=== PATIENT | female | born 1930 | race Caucasian/White ===

== ENCOUNTER 2019-07-07 16:06 | Inpatient (IN) | payer OTHER ==
[~2019-07-07] VITALS: Ht 152.4 cm; Wt 49.1 kg
[2019-07-07 16:08] VITALS: BP 150/82
[2019-07-07 16:51] LABS: EOSINOPHILS 6.8 % (0.0-3.0); HEMATOCRIT 37.4 % (37.0-47.0); HEMOGLOBIN 12.3 gm/dL (12.0-15.0); LYMPHOCYTES 18.4 % (24.0-44.0); MCH 31.8 pg (26.0-34.0); MCHC 32.9 g/dL (28.0-37.0); MCV 96.5 fL (80.0-100.0); MONOCYTES 8.5 % (1.0-8.0); PLATELET COUNT 203 thou/uL (150-400); POLYS 65.3 % (36.0-66.0); RBC 3.88 mil/uL (4.20-5.00); RDW 16.4 % (10.5-14.5); URINE BILIRUBIN NEGATIVE (Negative); URINE BLOOD NEGATIVE (Negative); URINE CLARITY CLEAR; URINE COLOR YELLOW; URINE GLUCOSE-RANDOM* NEGATIVE (Negative); URINE KETONES NEGATIVE (Negative); URINE LEUKOCYTES-REFLEX NEGATIVE (Negative); URINE NITRITE-REFLEX NEGATIVE (Negative); URINE PROTEIN (DIPSTICK) NEGATIVE (Negative); URINE UROBILINOGEN 0.2 E.U./dl (0.2-1.0); WBC 7.7 thou/uL (4.0-11.0)
[2019-07-07 17:04] LABS: CALCIUM 8.6 mg/dL (8.5-10.1); CREATININE 1.3 mg/dL (0.6-1.0); POTASSIUM 4.1 mmol/L (3.5-5.1)
[2019-07-07 17:10] LABS: ALBUMIN 3.2 g/dL (3.4-5.0); TOTAL BILIRUBIN 0.3 mg/dL (<0.1-1.0); TOTAL PROTEIN 6.3 g/dL (6.4-8.2)
[2019-07-07] MEDS ORDERED: CLONAZEPAM 0.50.5 M1 PO (17:18)
[2019-07-07] MEDS ORDERED: SEROQUEL 25 MG25 M1 PO (17:19)
[2019-07-07] MEDS ORDERED: SERTRALINE HCL50 MG PO (17:21)
[2019-07-07] MEDS ORDERED: SEROQUEL XR1 EACH PO (17:21)
[2019-07-07] MEDS ORDERED: CALCIUM CARBON500 MG PO (17:22)
[2019-07-07] MEDS ORDERED: MAGNESIUM-VIT1 EAC1 PO (17:22)
[2019-07-07] MEDS ORDERED: SYNTHROID88 MC1 PO (17:23)
[2019-07-07] MEDS ORDERED: MYSOLINE50 MG PO (17:23)
[2019-07-07] MEDS ORDERED: COLACE100 MG PO (17:23)
[2019-07-07] MEDS ORDERED: VITAMIN B-1250 MC2 PO (17:25)
[2019-07-07] MEDS ORDERED: MAPAP325 MG PO (17:26)
[2019-07-07 18:10] VITALS: BP 165/93
[2019-07-07] MEDS ORDERED: ATIVAN1 M1 PO ×2 (18:28→18:29)
--- NOTE | 2019-07-07 20:49 | NUR ---
183 88 yo female admitted per ER via half-way [facility] for dementia, insomnia, being increasingly "mean" to staff with decreased intake over past week. Spoke with son Godwin Scanlon (DPOA) via phone and he reports that she has been at [facility] for approximately 1 year and she has never liked being there to the point of her having to wear an ankle bracelet. He reports increased behaviors with staff over past few week. Awake and alert, anxious. States she does not want to be here and that she was told she was only here for a checkup. States she wants to go home. Breath sounds clear t/o, bilaterally equal. Color pink with brisk capillary refill and palpable peripheral pulses. Hypertensive. Regular HR auscultated. Active bowel sounds over soft, flat abdomen. Lg BM in ER per report. Straight cath also done in ER with pending cx. Gait very unsteady, wants to ambulate independently. Tremors present. Placed in wheelchair with lap randy. Large bruise over dorsal aspect of L foot with multiple bruises over arms. Mastectomy scar over L breast, limb alert bracelet in place.
--- NOTE | 2019-07-07 21:20 | NUR ---
Patient irritable, yelling, refusing HS medication. MD notified of behaviors and refusal. Order obtained for Geodon 15mg IM 1x now for severe agitation.
--- NOTE | 2019-07-08 00:18 | NUR ---
Patient approached while sitting in dayroom at which time she requested for a drink of water and to lay down. Patient given a drink of water and assisted to the bathroom. Patient continent of bladder in the bathroom. Patient then assisted to her bed. Patient states that is not her bed and she will not lay down. Nurses tried x10 minutes with no success. This occured at approximately 2300. Patient remains awake, sitting in w/c in the dayroom. MD aware. Order obtained for Ativan IM. Medication administered to right buttock with nurse x2 and security x2. Patient yelling, attempting to hit and kick. Continues to sit in w/c in dayroom at this time.
--- NOTE | 2019-07-08 01:17 | NUR ---
This nurse approached patient at 0100. Patient asked if she would like to lay down. Patient stated "yes, I'm tired, lets go". Nurse assisted patient to her room. Patient originally grabbed the door frame on the way into her room saying "this is not my apartment". Patient did allow for nurse to take her in to look around. Patient stood and walked with nurse to her bed with min assist. Patient layed down in bed for a minute but then started to get up again. Nurse sat with patient to hold her hand and talk to her. Patient repeatedly stating "you are going to kill me, aren't you". Nurse consoled patient and attempted to re-orientate her with no success. Patient layed in bed for approximately 10 minutes with nurse then stated "I'm going home now" and attempted to get out of bed independently. Nurse walked with patient to the hallway where she was assisted into a w/c. Patient paranoid and confused. However, no physical aggression shown at this time which is progress. Patient offered snacks and fluids and is sitting with staff supervision in dayroom.
--- NOTE | 2019-07-08 01:39 | NUR ---
The pt. asked if I could take her home, to [facility]. She was explained where she was and she said "I don't need to see the Dr." and "anybody can get one of those (badges)".
--- NOTE | 2019-07-08 03:23 | NUR ---
The pt. continued being suspicious of staff trying to help her saying "you're going to kill me", she drank water provided to her however. She sat in the day room and repeated "help me" and also "you're trying to kill me", noted tense and very confused. called at 0315 and order given for Olanzapine 10 mg. IM x 1 now which was given to her.
--- NOTE | 2019-07-08 04:53 | NUR ---
PATIENT HAS BEEN UP ALL NIGHT AND IS DELUSIONAL AND SCARED THAT PEOPLE ARE OUT TO KILL HER. SEVERAL ATTEMPTS HAVE BEEN MADE TO ASSIST PATIENT TO BED AND SHE HAS SCREAMED AND BEEN SCARED. I ASKED HER NURSE, SHAUN IF SHE WOULD MIND IF I SAT WITH PATIENT IN THE ROOM UNTIL SHE FELL ASLEEP BECAUSE PT STATED TO ME "i AM SO SLEEPY, BUT THEY WILL KILL ME IF i GO TO SLEEP." I TRIED TO EXPLAIN SHE IS SAFE AND WE ARE ALL HERE TO HELP HER. PATIENT AGREED THAT IF I STAYED WITH HER WHILE SHE WAS IN HER BED THAT SHE WOULD LAY DOWN AND TRY TO SLEEP. ONCE IN BED, PATIENT'S LEGS BEGAN HAVING SPASMS AND JUMPING SHE WAS SO TENSE AND TRYING TO RELAX. I TRIED WARMING AND RELAXING HER LEGS. SHE SAID THEY WERE HURTING WHEN THEY CRAMPED AND SHE WANTED SOMETHING TO HELP HER. PATIENT HAS BEEN REFUSING HER PO MEDS SINCE SHE'S BEEN HERE. I TOLD HER I COULD GET HER A PILL TO HELP WITH THE DISCOMFORT BUT SHE HAD TO AGREE TO TAKE IT. SHE DID TAKE THE TYLENOL 650MG WITH WATER. I ALSO RUBBED HER LEGS DOWN WITH ADONAY HOPE. SAT WITH PATIENT A LITTLE LONGER AND SHE SAID HER LEGS KEPT JUMPING AND HURTING. HER NURSE WAS AT LUNCH SO I OFFERED TO CALL THE DOCTOR FOR SOMETHING FOR HER RESTLESS LEGS/CRAMPING. DR BONILLA ORDERED ROPRINOLE .5MG PO AND DIAZEPAM 5MG PO. AWAITING MEDS AND LET ISAI Mata RN KNOW IT WAS ON IT'S WAY SHE CAME BACK FROM LUNCH.
[2019-07-08 07:35] VITALS: BP 97/55
[2019-07-08 09:45] VITALS: BP 97/55
--- NOTE | 2019-07-08 09:54 | NUR ---
0617 Report received from overnight shift, patient up in day room, ate breakfast. Took medication without incidence, patient did not partcipate in groups. She wanted to go back room to rest, patient calm cooperative and is impulsive at time. Patient keep tryimg to get out of wheelchair to walk on own. She does need assitance with walking.
[2019-07-08 10:06] LABS: FOLIC ACID 15.3 ng/mL (8.6-58.9); TSH 23.262 uIU/mL (0.358-3.740)
--- NOTE | 2019-07-08 13:07 | NUR ---
Nutrition: Admit: increase in aggressive behavior, agitation. From NH. Assess due to high risk per reported 2-13# of wt loss and decreased appetite. Visited after lunch. Pt was already back in bed, sound asleep. Spoke w/ pt's nurse. RN states pt ate well today, was up for both meals, no eating concerns. Pt has taken naps after both meals. RN attempted to wake pt up for RD interview, but pt was sound asleep. Given adequate po intake on unit thus far, lack of any weight hx in EMR, and healthy weight and BMI at 22.2 kg/m2, will keep as low nutrition risk for now. Will follow up again next week once more data and meal intakes become available for trends. Note pt on cholecalciferol for hx vitamin D deficiency, magnesium, and remeron which could help appetite also.
[2019-07-08 19:55] VITALS: BP 136/54
--- NOTE | 2019-07-09 02:16 | NUR ---
1909-Report received from day shift nurse and care assumed. Xin was in her bed resting and awake at shift start and talkative and cooperative with assessment. She said "I just want to rest, I'm tired". She was continent of urine and was stand by assist with walker, she tilted to the side high fall risk. She was compliant with HS meds. whole with water asking what they were for and indication. She later was awake and began getting restless so went to the day room in wheelchair. She said "what is wrong with her" towards a loud peer, talked with staff, said she wanted to go back to bed to sleep and was polite saying thank you and bright affect as she was not sleepy until later when she did go to bed and slept well remainder of the night. Rash on upper and lower back raised, itchy noted and Nurse Practioner called for orders.
[2019-07-09 10:13] VITALS: BP 117/63
--- NOTE | 2019-07-09 14:11 | NUR ---
Up to wheelchair. Wants to ambulate but gait very unsteady with tremor. Lap randy in place. Repeats speech of peers. Orientated to person and knows she is in hospital. Appropriate requests. At times confused speech. Denies SI/HI, pain. Breath sounds clear t/o, bilaterally equal. Regular HR auscultated. Color pink with brisk capillary refill and palpable peripheral pulses. Active bowel sounds over soft, flat abdomen. Multiple bruises on arms and L foot. L masectomy scar. Callous on R foot. 1400 Sleeping in recliner without s/o distress. Drank several ounces of water.
[2019-07-09 19:35] VITALS: BP 110/60
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
[2019-07-10 04:53] LABS: HEMATOCRIT 39.6 % (37.0-47.0); HEMOGLOBIN 12.7 gm/dL (12.0-15.0); MCH 31.8 pg (26.0-34.0); MCHC 32.2 g/dL (28.0-37.0); MCV 98.8 fL (80.0-100.0); RBC 4.01 mil/uL (4.20-5.00); RDW 16.7 % (10.5-14.5); WBC 5.7 thou/uL (4.0-11.0)
[2019-07-10 05:04] LABS: CALCIUM 9.6 mg/dL (8.5-10.1); CREATININE 1.2 mg/dL (0.6-1.0)
[2019-07-10 08:07] VITALS: BP 136/73
[2019-07-10 13:50] VITALS: BP 150/82
--- NOTE | 2019-07-10 14:35 | NUR ---
REFUSED AM MEDICATIONS STATING "THE OMLY MEDICINE I NEED IS MY SHAKING MEDICINE I HAD THAT" YELLING OUT AND REPEATING PHRASE "HELP ME HELP ME" WHEN APPROACHED STATES SHE NEEDS TO "GET OUT OF HERE" BUT DOES NOT KNOW WHERE HERE IS STATING SHE IS IN "BIG HOUSE SOMEWHERE MARCO CLEARY" DENIES C/O PAIN AND NO TREMOR NOTED DURING AM ASSESSMENT-DID EAT APPROX 30 PERCENT OF BREAKFAST WITH FEEDING BUT WILL NOT INITATE FEEDING SELF-TOOK BITES OF LUNCH ONLY BEFORE CLOSING MOUTH TIGHTLY AND REFUSING. GAIT BRANDIE UNSTEADY AND IS IMPULSIVE ON SEVERAL OCCASSIONS GETTING UP AND WALKING ON OWN-LAP BELT APPLIED BUT REMOVES IT WITHING 1-2 MINUTES OR SLIDES UNDERNEATH-CHAIR ALARM INITATED AND HAS BEEN GOING OFF FREQUENTLY THIS PM.
[2019-07-10 20:02] VITALS: BP 124/63
--- NOTE | 2019-07-11 01:26 | NUR ---
Care assumed of patient at 1915: Patient resting in bed at start of shift. Patient easily aroused. Patient compliant with nursing assessment. Denies pain or discomfort. Denies SI/HI/AH/VH. No s/s of delusional or paranoia behaviors. Alert and oriented to person only. Confused and forgetful. Patient has been calm, pleasant and cooperative. Patient will wake up approximately every hour and calls out for help. Patient re-oriented to current time and place then she falls back to sleep without difficulty. Patient took HS medication crushed with yogurt. Patient ate a couple bites of yogurt but declined any more than that. Patient assisted to the bathroom x1. Continent of bladder. Required mod assist x1 for ambulation, transfers and toileting. Patients involuntary tremors appear to be lessened this shift. No aggression or agitation observed. Patient respectful, smiling and holding nurses hand when talking.
[2019-07-11 08:53] VITALS: BP 128/76
--- NOTE | 2019-07-11 17:46 | NUR ---
Alert, sitting in recliner without s/o distress. Orientated to person and place. Denies SI/HI. Repeatedly c/o "shakyness" in late afternoon. Ativan given per scheduled order. Breath sounds clear t/o, bilaterally equal. Color pink with brisk capillary refill and palpable peripheral pulses. Regular HR auscultated. Incontinent per brief. Active bowel sounds over soft, flat abdomen. No issues today.
[2019-07-11 20:02] VITALS: BP 139/77
--- NOTE | 2019-07-12 02:05 | NUR ---
ASSUMED CARE AT APROXIMATELY 19:15 ON 07/11/19, SITTING IN W/C WITH LAP TARSHA IN PLACE. A&O X 1 TO PERSON ONLY. NOT ABLE TO DESCRIBE PLACE [facility], OR EVEN JUST A HOSPITAL. DENIES SI AND HI, NO APPARENT AH, OR VH. TOOK MEDS CRUSHED IN PUDDING, ASKING IF HER MEDICATION TO HELP STOP SHAKING WAS IN THERE. GIVEN PRN TYLENOL 650 FOR 5/10 BACK PAIN. CONTINENT OF URINE, AMBULATING TO THE BATHROOM ON AN UNSTEADY GAIT, X 1 ASSIST. IN BED AT THIS WRITING, EYES CLOSED, RESPIRATIONS EVEN AND UNLABORED. BED IN LOW POSITION, BED ALARM SET. HAS WOKEN UP X 2 IN THE NIGHT TO TOILET. WILL CONTINUE TO MONITOR Q 12 MINUTES FOR PATIEN SAFETY.
--- NOTE | 2019-07-12 06:00 | NUR ---
SLEPT 5.8 HOURS OVERNIGHT
[2019-07-12 09:16] VITALS: BP 140/72
[2019-07-12 13:18] LABS: HEMATOCRIT 40.4 % (37.0-47.0); HEMOGLOBIN 13.2 gm/dL (12.0-15.0); MCHC 32.8 g/dL (28.0-37.0); MCV 97.5 fL (80.0-100.0); RBC 4.14 mil/uL (4.20-5.00); RDW 16.1 % (10.5-14.5)
[2019-07-12 13:35] LABS: ALBUMIN 3.3 g/dL (3.4-5.0); CALCIUM 8.9 mg/dL (8.5-10.1); CREATININE 1.4 mg/dL (0.6-1.0); MAGNESIUM 2.1 mg/dL (1.8-2.4); POTASSIUM 4.2 mmol/L (3.5-5.1); TOTAL BILIRUBIN 0.7 mg/dL (<0.1-1.0); TOTAL PROTEIN 7.1 g/dL (6.4-8.2)
[2019-07-12 16:07] LABS: URINE BILIRUBIN NEGATIVE (Negative); URINE BLOOD NEGATIVE (Negative); URINE CLARITY CLEAR; URINE COLOR YELLOW; URINE GLUCOSE-RANDOM* NEGATIVE (Negative); URINE KETONES NEGATIVE (Negative); URINE NITRITE-REFLEX NEGATIVE (Negative); URINE PROTEIN (DIPSTICK) NEGATIVE (Negative); URINE SPECIFIC GRAVITY >= 1.030 (1.005-1.035); URINE UROBILINOGEN 0.2 E.U./dl (0.2-1.0)
[2019-07-12 16:09] LABS: URINE LEUKOCYTES-REFLEX 1+ (Negative)
[2019-07-12 16:18] LABS: SQUAMOUS 0-3 Few /LPF (0-3)
[2019-07-12 16:19] LABS: CASTS None Seen /LPF (None Seen); CRYSTALS None Seen /LPF (None Seen); URINE RBC None Seen /HPF (0-2)
--- NOTE | 2019-07-12 16:36 | NUR ---
Remained in dayroom today, she had fever this a.m. and reported to PUBLIC WORKS LABORER as well as Dr. Michel, orders for labs and UA done, she is alert and confused, she does have anxiety about her meds and "where she needs to go", reassured she is safe and meds are for her thoughts and "shaking", she was seen having a conversation with another peer, she is asisted in eating, much encouragement needed for her to eat and drink, no agitation or aggression noted today. Continue to monitor for behaviors and safety.
[2019-07-12 20:19] VITALS: BP 141/85
[2019-07-12 22:38] VITALS: BP 141/85
--- NOTE | 2019-07-13 03:40 | NUR ---
PT UP IN DAY AREA AT BEGINNING OF EVENING. VERBALIZING THAT SHE WANTS HER MEDS AND TO GO TO BED. SHORT TERM MEMORY IMPAIRED. AFTER SNACK, PT TOOK HS MEDS CRUSHED WITH APPLESAUCE. HAS SLEPT INTERMITTANTLY THROUGH THE NIGHT. RESTLESS BUT REDIRECTABLE.
[2019-07-13 12:20] VITALS: BP 146/80
--- NOTE | 2019-07-13 12:32 | NUR ---
ASSDUMED CARE AT 0700 THIS MORNING. PT. UP, DRESSED AND ON THE UNIT IN A W/C. SHE STATES SHE NEEDS HELP AND THEN FORGETS WHAT SHE NEEDS. SHE IS PLEASANT AND COOPERATIVE WITH STAFF. DR. GILLILAND WROTE ORDER TO GIVE 500 ML. NORMAL SALINE IV. IV TEAM NOTIFIED AND STARTED IV. NORMAL SALINE STARTED AND WAS INSTILLED IN PT. SHE COULD NOT SWALLOW HER MEDICATIONS WHOLE. THEY WERE CRUSHED AND PT. IN APPLESAUCE. SHE MUMBLES A LOT WHEN SHE TALKS, BUT DOES NOT SEEM TO ANSWER QUESTIONS. FED SELF SLOWLY. NOT NOTICE OF SI/HI OR AVH TODAY.
[2019-07-13 20:09] VITALS: BP 142/70
--- NOTE | 2019-07-14 05:10 | NUR ---
ASSUMED CARE OF PATIENT AT 1915. SHE WAS IN BED AT THAT TIME AND REMAINS IN BED NOW. TOOK PO MEDS CRUSHED IN APPLESAUCE. WILL SWALLOW SMALL PILLS WHOLE. PLEASANT AND COOPERATIVE WITH ASSESSMENT PROCESS. DID HAVE A RESTLESS PERIOD DURING THE NIGHT, ATTEMPTING TO GET OUT OF BED REPEATEDLY, UNABLE TO LIE STILL. MEMORY VERY POOR. ASKED FOR EVENING MEDS AT LEAST TWICE AFTER SHE HAD ALREADY GOTTEN THEM. DID C/O LEG PAIN AND REC'D TYLENOL PER ORDERS WITH SOME RELIEF.
[2019-07-14 06:55] LABS: CALCIUM 8.6 mg/dL (8.5-10.1); CREATININE 1.2 mg/dL (0.6-1.0); POTASSIUM 4.1 mmol/L (3.5-5.1)
[2019-07-14 06:58] LABS: HEMATOCRIT 33.4 % (37.0-47.0); MCH 31.9 pg (26.0-34.0); MCHC 32.8 g/dL (28.0-37.0); MCV 97.2 fL (80.0-100.0); RBC 3.44 mil/uL (4.20-5.00); RDW 16.2 % (10.5-14.5); WBC 3.7 thou/uL (4.0-11.0)
[2019-07-14 07:53] VITALS: BP 145/66
--- NOTE | 2019-07-14 17:35 | NUR ---
Sitting in wc with lap randy in place. No s/o distress. Orientated to person only. Denies SI/HI. Repeatedly asking for "shaky" medicine and then forgetting that she had it at 0900. Discussed with Dr. Starkey, ordered tid. Very forgetful. Breath sounds clear t/o, bilaterally equal. Reg HR auscultated. Color pink with brisk capillary and palpable peripheral pulses. Active bowel sounds over soft, rounded abdomen. Voiding per toilet. Ambulated with walker twice around unit with assistance. Gait moderately steady. Dr. Starkey aware of no BM since 07/09. PRN meds ordered. Eating fair today. Many questions r/t food/drink. Eating ensure pudding at present. Watching TV, no s/o distress.
[2019-07-14 19:48] VITALS: BP 150/81
[2019-07-14 21:45] VITALS: BP 150/81
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
--- NOTE | 2019-07-15 02:08 | NUR ---
PATIENT UP IN DINING ROOM IN RECLINER CHAIR. PATIENT IS STILL AWAKE AND NOT WANTING TO GO TO SLEEP. HALDOL 2.5MG PO AND TYLENOL 650MG PO GIVEN AT 0200 CRUSHED IN ICECREAM. PATIENT ENJOYED HER SNACK AND HAS BEEN DRINKING WATER. PATIENT LAYING QUIETLY NOW IN RECLINER. WILL CONTINUE TO MONITOR.
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
--- NOTE | 2019-07-15 06:31 | NUR ---
ASSISTED PATIENT BY WC TO HER ROOM TO USE TOILET. SHE VOIDED SMALL AMOUNT. DRY CLEAN BRIEF PUT ON. PLACED PATIENT IN CLEAN CLOTHES WITH YELLOW SHIRT. PT WANTED TO LAY DOWN. PATIENT IN BED RESTING TILL BREAKFAST. BED IN LOW POSITION AND BED ALARM ON.
[2019-07-15 09:06] VITALS: BP 122/71
[2019-07-15 10:58] VITALS: BP 122/71
--- NOTE | 2019-07-15 11:15 | NUR ---
Pt is sleeping during the day less. Disoriented to place/time/date. Participating minimally with exercises or group sharing when not focused on getting up or needing help. No agressive behaviors.
--- NOTE | 2019-07-15 17:41 | NUR ---
ASSUMED CARE AT 0700 THIS MORNING. PT. IN BED RESTING. NOC SHIFT REPORTED THAT THE PT. DID NOT SLEEP AT ALL LAST NIGHT. SHE WAS ALLOWED TO REST UNTIL 0900 THIS MORNING. SHE WAS THEN AWAKENED AND GIVEN HER MORNING MEDICATION. HER MORNING MEDICATIONS WERE CRUSHED AND PUT IN APPLESAUCE. SHE TOOK THESE WITHOUT DIFFICULTY. ABOUT 1300 SHE WENT TO LAY DOWN. SHE GOT UP ABOUT 30 MIN LATER. SHE GOT IN HER W/C AND INTO THE TRIPP. SHE STARTED TALKING ABOUT SEEING ANTS. SHE WOULD NOT ALLOW STAFF TO TAKE HER TO THE DINING ROOM. SHE ATTEMPTED TO GET OUT OF HER CHAIR, BECOMING VERY UPSET. WHEN STAFF ATTEMPTED TO TALK TO HER, SHE STARTED SWINGING AT THEM. STAFF ATTEMPTED TO GIVE HER HALDOL, BUT SHE REFUSED. DR. BONILLA WAS ON THE UNIT AND STATED HE WAS CHANGING HER PRN IM. PT. WAS THEN GIVEN A PRN IM. SHE CONTINUED TO BE OBSTINANT. SHE REFUSED SUPPER, BUT WAS GIVEN APPLE JUICE. SHE SAT ON THE UNIT UNTIL STAFF CAN TAKE HER TO BED.
[2019-07-15 19:55] VITALS: BP 152/86
[2019-07-15 22:00] VITALS: BP 152/86
--- NOTE | 2019-07-16 04:37 | NUR ---
PATIENT STARTED COGENTIN TONIGHT. PATIENT WAS UP IN DINING ROOM IN W/C THIS EVENING. SHE WAS VERY SLEEPY AND RESTLESS. SHE DID EAT ICECREAM A SNACK. PATIENT WAS CALM. PATIENT WAS ASSISTED TO BED AT 2300. SHE HAS LAID QUIETLY IN THERE AND FINALLY FALLING ASLEEP FOR SUSTAINED PERIOD AT 0300. PATIENT HAS BEEN ALOT LESS ANXIOUS TONIGHT AND MORE COOPERATIVE WITH CARES. BED IN LOW POSITION AND BED ALARM ON. WILL CONTINUE TO MONITOR.
[2019-07-16 08:18] VITALS: BP 114/59
[2019-07-16 12:08] VITALS: BP 114/59
--- NOTE | 2019-07-16 12:18 | NUR ---
ASSUMED CARE AT 0700 TODAY. PT. WAS IN BED, GOTTEN UP FOR BREAKFAST BY THIS RN AND A PCT. PT. WAS COOPERATIVE WITH THIS. SHE DID STATES SHE WOULD LIKE TO REMAIN IN BED, BUT DID GET UP WHEN STAFF TOLD HER IT IS BREAKFAST TIME. SHE CONTINUES TO HAVE MUCH CONFUSION. HER MEDICATIONS ARE CRUSHED AND PUT IN PUDDING. SHE NEEDED SOME ENCOURAGEMENT TO TAKE THE MEDICATIONS, BUT DID. DOES NOT EAT WELL OFTEN ONLY 10-20% OF THE MEAL AT EACH MEAL. UNABLE TO PARTICIPATE MUCH IN GROUPS DUE TO HER CONFUSION. NO S/S SI/HI NOTED. AT THIS WRITING TODAY SHE HAS NOT MENTIONED THE ANTS. WILL CONTINUE TO MONITOR.
--- NOTE | 2019-07-16 15:45 | NUR ---
Pt's son Godwin Scanlon contacted TIMOTHY to get an update; TIMOTHY provided the update including that on Saturday she had a rough evening, and as a result the psych doctor pushed back the conversation of discharge to Saturday. TIMOTHY also provided education to Godwin on the discharge process. Godwin is afraid that pt's behavior will cause [facility] to not want her to return. TIMOTHY explained that while pt did have some behaviors, none were aggressive or violent and she has not heard from [facility] that pt cannot come back. SW team will continue to follow pt during her stay.
[2019-07-16 20:00] VITALS: BP 111/82
--- NOTE | 2019-07-17 01:43 | NUR ---
Care assumed of patient at 1915: Patient seated in w/c in dayroom at start of shift. Patient alert and oriented to person. Confused and forgetful. Patient agitated, irritable and restless this shift. Patient sarcastic and frustrated with staff. Patient provided a cup of ice water. Patient then provided medication crushed. Patient became confused and agitated because she forgot which cup was her water even though she was holding it in her hand. Patient then stated that she was concerned about "overdose". Patient then stated "are you trying to poison me?". Patient required several re-directions and perserverance for her to take her HS medications. After several minutes, patient took all HS medication. Patient ate 25% yogurt cup. Staff asked patient if she was ready to go to bed, patient yelled at staff "I am not a baby, I will put myself to bed when I am damned ready". Another staff approached her several minutes later and asked if she needed to use the bathroom. Patient stated in a sarcastic manner, "No mommy, I can go to the potty by myself". Patient restless, propelling w/c about the unit. Appears that patient has not slept well over the last several nights. Agitation continued to increase, attempting to hit staff and yelling. LEVI Plunkett notified of behaviors. LEAD WEB DEVELOPER notified that patient took Olanzapine 12.5mg PO at HS and has Olanzapine 10mg IM PRN available. Due to administration being approximately 3 hours apart, it was OK to give PRN Olanzapine. Patient assisted to bed with staff x3 to administer injection. Patient grabbing and pinching staff, resisting care, yelling. Patient settled in bed with bed alarm activated. Patient has remained in bed resting quietly since.
[2019-07-17 08:49] VITALS: BP 109/62; BP 133/68
[2019-07-17 09:30] VITALS: BP 109/62
--- NOTE | 2019-07-17 09:41 | NUR ---
0645 Report received from overnight shift, patient did not eat breakfast, took some applesauce with medication. Patient is slouched in w/c, calm, confused. Not participating in any groups, Dr. Starkey ordered labs to see if patient's labs are therapuetic. Patient is not eating much or drinking much.
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
[2019-07-17 11:17] LABS: ABSOLUTE NEUTROPHILS 4.3 thou/uL (1.4-8.2); BASOPHILS 0.7 % (0.0-2.0); HEMATOCRIT 38.5 % (37.0-47.0); HEMOGLOBIN 12.6 gm/dL (12.0-15.0); LYMPHOCYTES 22.2 % (24.0-44.0); MCH 31.9 pg (26.0-34.0); MCHC 32.8 g/dL (28.0-37.0); MCV 97.2 fL (80.0-100.0); MONOCYTES 8.8 % (1.0-8.0); PLATELET COUNT 204 thou/uL (150-400); POLYS 67.3 % (36.0-66.0); RBC 3.96 mil/uL (4.20-5.00); RDW 15.7 % (10.5-14.5); WBC 6.4 thou/uL (4.0-11.0)
[2019-07-17 11:23] LABS: CALCIUM 9.2 mg/dL (8.5-10.1); CREATININE 1.3 mg/dL (0.6-1.0); POTASSIUM 4.5 mmol/L (3.5-5.1)
--- NOTE | 2019-07-17 16:19 | NUR ---
SW received a call from pt's daughter Lauryn asking for an update. SW read for her a couple recent notes. She said her brother Godwin told her that her mom's health was declining. SW explained that the doctor thinks she may qualify soon for hospice as her eating has greatly reduced. SW team will continue to follow pt during her stay.
--- NOTE | 2019-07-17 16:21 | NUR ---
0647 Report received from overnight shift, patient in day room this morning slumped in chair, head down. Patient did not eat breakfast, just drank a few sips of insure, and some sips of water. Dr mullins ordered CBC and BMP to check labs. Patient is declining from 5 days ago, patient is refusing to eat and only takes sips of water. Dr mullins notified son of patient's condition, they talked about next level of care for patient. We laid patient down due to slouching in wheel chair and holding head down for comfort. We are to encourage fluids and her Olanzipine discontinued.
[2019-07-17 20:18] VITALS: BP 146/80
--- NOTE | 2019-07-17 23:10 | NUR ---
Care assumed of patient at 1915: Patient resting in bed at start of shift. Patient woke up for nursing assessment. Calm, pleasant and cooperative. Alert and oriented to person only. Confused and forgetful. Patient appears drowsy but was compliant with assessment. Denies pain or discomfort. Took HS medication crushed without difficulty. Declined HS snack. Patient having poor eye contact, presents with flat affect. Reported she was tired and would like to back to sleep. No aggression, agitation or irritability observed. Patient resting quietly in bed at this time.
[2019-07-18 06:00] LABS: HEMATOCRIT 36.6 % (37.0-47.0); HEMOGLOBIN 12.1 gm/dL (12.0-15.0); MCH 32.1 pg (26.0-34.0); MCHC 33.1 g/dL (28.0-37.0); MCV 97.2 fL (80.0-100.0); RBC 3.77 mil/uL (4.20-5.00); RDW 15.7 % (10.5-14.5); WBC 6.6 thou/uL (4.0-11.0)
[2019-07-18 06:21] LABS: CALCIUM 9.1 mg/dL (8.5-10.1); CREATININE 1.2 mg/dL (0.6-1.0); POTASSIUM 3.9 mmol/L (3.5-5.1)
[2019-07-18 06:30] LABS: URINE BILIRUBIN NEGATIVE (Negative); URINE BLOOD TRACE (Negative); URINE CLARITY CLEAR; URINE COLOR YELLOW; URINE GLUCOSE-RANDOM* NEGATIVE (Negative); URINE KETONES NEGATIVE (Negative); URINE LEUKOCYTES-REFLEX 1+ (Negative); URINE NITRITE-REFLEX NEGATIVE (Negative); URINE PROTEIN (DIPSTICK) NEGATIVE (Negative); URINE SPECIFIC GRAVITY >= 1.030 (1.005-1.035); URINE UROBILINOGEN 0.2 E.U./dl (0.2-1.0)
[2019-07-18 06:43] LABS: SQUAMOUS 0-3 Few /LPF (0-3); URINE WBC-REFLEX >25 Many /HPF (0-5)
[2019-07-18 06:44] LABS: BACTERIA-REFLEX 1-9 Few /HPF (None Seen); CASTS None Seen /LPF (None Seen); CRYSTALS None Seen /LPF (None Seen); URINE RBC 0-2 Rare /HPF (0-2)
[2019-07-18 07:55] VITALS: BP 115/74
--- NOTE | 2019-07-18 15:48 | NUR ---
BRIEF EPISODE OF MILD AGITATION IN FORM OF YELLING OUT REPEATDLY FOR HELP-ASKING PEERS TO HELP HER AND ATTEMPTING TO STAND UP UNASSISTED AT APPROX 0730 THIS AM-ASSISTED TO TOILET AND DID HAVE BM-RETURNED TO BREAKFAST ROOM AND WAS ABLE TO EAT BREAKFAST AND REMAIN IN DAYROOM AND IN GROUP WITHOUT SIGNIFICANT RESTLESSNESS/AGITATION-UNTIL APPROX 1500 WHEN BEGAN YELLING LOUDLY FOR HELP ASKING EVERY 1-2 MINUTES FOR "SHAKING PILL" NO VISIBLE TREMOR BUT STATES FEELS "SHAKY ON THE INSIDE"AMBULATED IN HALLWAY WITH GAIT BELT,ROLLER WALKER AND SBA X1 APPROX 100FT AND TOLERATED WELL-NOTED TO HAVE CHIN TO CHEST HEAD POSITION AND DOES REPORT STIFFNESS AND PAIN IN NECK AREA-NO COGWHEEL RIGIDITY NOTED WHEN TESTED-NO DROOLING OR SWALLOWING PROBLEMS NOTED OR REPORTED-TOPICAL ANALGESIC OINTMENT APPLIED PRN AT APPROX 1600 ALONG WITH TYLENOL 650MGPO PRN FOR NECK STIFFNESS-PT UNABLE TO RATE ON 1-10 SCALE BUT IS NOTED TO GRIMACE WITH MOVEMENT OF NECK.SHOULDER AREA-ASSISTED TO TOILET Q 2-3 HOURS AND HAS REMAINED CONTINENT SO FAR THIS SHIFT
[2019-07-18 21:16] VITALS: BP 112/50; BP 148/83
--- NOTE | 2019-07-19 03:19 | NUR ---
ASSUMED CARE FROM DAY SHIFT PT SITTING IN RECLINER IN DAY ROOM, HAVE NO CONCERNS OR COMPLAINTS AT TIME OF ASSESSMENT. PO MEDICATON TAKEN AND PT ASSISTED TO BED. GAIT UNSTEADY WHEN UP FROM WHEELCHAIR TO BED. PT RESTED WELL THROUGHOUT FREQ CHECKS, WILL CONITNUE WITH CURRENT PLAN OF CARE AND WILL REPORT CHANGES OR ABNORMAL FINDINGS.
[2019-07-19 09:35] VITALS: BP 124/71
[2019-07-19 10:40] VITALS: BP 124/71
--- NOTE | 2019-07-19 15:27 | NUR ---
Assumed care this morning 0700. Patient calm and at the activity room. Helped with breakfast setup. Complained of backache, tylenol administered. feeling well this afternoon Going around the unit on her w/c. Nurse has to encourage her to take medications. Crushed into apple sauce. poor appetite. encourage to feed especially ensure enlive drink. Pt had resting tremor in the morning especially in her hands and she wants it to go away. Will continue with the plan of care.
[2019-07-19 20:00] VITALS: BP 140/105
[2019-07-20 02:40] VITALS: BP 115/65
--- NOTE | 2019-07-20 03:07 | NUR ---
ASSUMED CARE FROM DAY SHIFT PT UP IN WHEELCHAIR IN DAYROOM , PT VERY AGITATED, PT DID TAKE HS PO MEDICATION , BUT REFUSED TO LEAVE DAYROOM TO GOT TO SLEEP. WHEN PLACED IN BED PT CONTINUE TO ATTEMPT TO CLIMB OUT AND WAS INCREASING BECAME AGITATED,IM ZYPREXA GIVEN , PT CONINTUE TO TRY TO CLIMB OUT OF BED . PT THEN PLACED IN WHEELCHAIR AND WHEELED TO DAYROOM. AFTER 1 HOUR IN DAY ROOM PT REQUESTED TO BE RETURNED TO ROOM TO SLEEP. PT THEN WENT TO SLEEP WITHOUT ISSUES. PT THEN RESTED WELL THROUGHOUT FREQ CHECKS. BED ALARM ON FOR SAFETY. WILL CONTINUE WITH CURRENT PLAN OF CARE.
[2019-07-20 08:32] VITALS: BP 123/76
--- NOTE | 2019-07-20 12:47 | NUR ---
TIMOTHY contacted [facility] and spoke with Melisa who asked for a week's worth of notes be faxed to the facility. TIMOTHY explained that pt needs to be d/c tomorrow. Melisa said ok; the notes will help them prepare for their return. Melisa said the facility arranges transportation and they will call TIMOTHY back with a time. TIMOTHY faxed updated notes to [facility]. TIMOTHY team will continue to follow pt during her stay.
--- NOTE | 2019-07-20 14:27 | NUR ---
TIMOTHY received a call from Melisa with [facility] who said they will pick pt up on 07/21/19 @ 2686. SW team will continue to follow pt during her stay. [facility] [address] [place] [id number]
--- NOTE | 2019-07-20 15:32 | NUR ---
HAS BEEN SLIGHTLY MORE DROWSY TODAY-ROUSABLE TO VERBAL STIMULI BUT WILL FREQUENTLY TAKE BRIEF NAPS IN RECLINER. CONTINUES TO HAVE CHIN TO CHEST POSTURE AND DOES REPORT PAIN WITH MOVEMENT IN NECK/SHOULDERS AREA. ADONAY HOPE CREAM APPLIED TOPICALLY IN ADDITION TO TYLENOL 650MG PO PRN AT APPROX. 1100-PT UNABLE TO GIVE NUMERIC PAIN RATING BUT DOES STATE NECK FEELS "BETTER" UPON REASSESSMENT IN APPROX. 30 MINUTES. HAS REQUIRED SBA OF 1-2 FOR TRANSFERS TODAY-GAIT/MOVEMENT NOT STRONG PREVIOUS DAYS. HAS BEEN INCONT. OF URINE X1 OTHERWISE HAS BEEN ABLE TALERT STAFF WHEN NEEDING TO USE TOILET. APPETITE IS POOR BUT WILL TAKE SUPPLEMENTS AND HAD 2 CONTAINERS OF ICE CREAM SO FAR THIS SHIFT. DOES TAKE MEDS CRUSHED IN PUDDING. MILD RESTLESSNESS IN FORM OF YELLING OUT BUT DOES RESPOND TO COMFORT MEASURES/INTERVENTIONS FROM NURSING STAFF.
[2019-07-20 19:44] VITALS: BP 114/57
--- NOTE | 2019-07-21 04:47 | NUR ---
TOOK OVER CARE OF THIS PATIENT [id number]. PATIENT ALERT AND ORIENTED XPERSON AND PLACE. HEAD IN TUCK/CHINPOSITION. NEED TO LIFT CHIN FOR HER TO TAKE HER MEDS. DENIES PAIN. WENT TO BED LATE. TOOK MEDS WITH SOME COAXING, DAMION APPEARED TO BE ASLEEP MOST OF THE NIGHT.
[2019-07-21 06:13] LABS: HEMATOCRIT 36.1 % (37.0-47.0); HEMOGLOBIN 11.9 gm/dL (12.0-15.0); MCH 31.9 pg (26.0-34.0); MCHC 32.9 g/dL (28.0-37.0); MCV 96.8 fL (80.0-100.0); RBC 3.73 mil/uL (4.20-5.00); RDW 15.5 % (10.5-14.5); WBC 6.7 thou/uL (4.0-11.0)
[2019-07-21 06:26] LABS: CALCIUM 8.9 mg/dL (8.5-10.1); CREATININE 1.3 mg/dL (0.6-1.0); POTASSIUM 3.8 mmol/L (3.5-5.1)
[2019-07-21] MEDS ORDERED: REMERON15 MG PO (10:43)
[2019-07-21] MEDS ORDERED: BENZTROPINE MES1 MG PO (10:44)
[2019-07-21] MEDS ORDERED: SENNA8.6 MG PO (10:47)
[2019-07-21] MEDS ORDERED: REQUIP 1 MG TABL1 M1 PO (10:47)
[2019-07-21] MEDS ORDERED: SYNTHROID100 MC1 PO (10:48)
[2019-07-21] MEDS ORDERED: B-12500 MCG PO (10:48)
[2019-07-21] MEDS ORDERED: VITAMIN D325 MCG PO (10:49)
--- NOTE | 2019-07-21 14:01 | NUR ---
SW D/C note SW received notice from pt's nurse that [facility] will be coming to pick pt up earlier than scheduled. TIMOTHY faxed discharge documents to [facility]. No other needs for SW team to adress at this time.
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
== END 2019-07-21 13:35 | DRG 57 ==
LOC: ER 16:06 → SBH 17:35 → EROBS 17:35 → SBH 17:35
PROVIDERS: Hospitalist; Internal Medicine; Physician Assistant; ADMIT Psychiatry & Neurology Psychiatry
DX: G30.9 Alzheimer's disease, unspecified (principal); N17.9 Acute kidney failure, unspecified; E87.1 Hypo-osmolality and hyponatremia; F01.51 Vascular dementia, unspecified severity, with behavioral disturbance; F02.81 Dementia in other diseases classified elsewhere, unspecified severity, with behavioral disturbance; N39.0 Urinary tract infection, site not specified; R40.0 Somnolence; F41.9 Anxiety disorder, unspecified; F32.9 Major depressive disorder, single episode, unspecified; L50.9 Urticaria, unspecified; M48.00 Spinal stenosis, site unspecified; E03.9 Hypothyroidism, unspecified; N18.9 Chronic kidney disease, unspecified; E86.0 Dehydration; Z79.899 Other long term (current) drug therapy; Z23 Encounter for immunization; Z90.710 Acquired absence of both cervix and uterus; Z90.49 Acquired absence of other specified parts of digestive tract; Z87.891 Personal history of nicotine dependence
CPT/HCPCS: 10880